=== PATIENT | male | born 1950 | race Caucasian/White ===

== ENCOUNTER 2016-12-07 13:57 | Emergency (ER) | payer OTHER ==
[~2016-12-07] VITALS: Ht 170.2 cm; Wt 78.0 kg
[~2016-12-07 13:57] MED LIST: ALPR1TAB3 PO; BUSP15TA PO; CITA20TA4 PO; DILT60TA33 PO; HYDR-3516 PO; MACR100C2 PO; MIRT45TA PO; PRAD150C PO; ZYPR20TA PO
[2016-12-07 14:13] VITALS: BP 105/79; PULSE 107; RESP 16; TEMP 98.1; O2SAT 97
--- NOTE | 2016-12-07 14:43 | PD ---
HPI Chief Complaint: Skin Problem Time Seen by Provider: 14:40 Travel History International Travel<30 days: No Contact w/Intl Traveler<30days: No Traveled to known affect area: No History of Present Illness HPI Patient comes in complaining of pruritic rash ongoing for approximately one week. Patient states the rash began on his right forearm has since spread to his bilateral upper and lower extremities. Patient states he took Benadryl today with no improvement of his symptoms. Patient denies any known new allergen exposures including but not limited to: soaps, lotions, detergents, pets, furniture, foods, or medicines. Patient denies being around anyone else with similar or weight loss. PFSH Past Medical History Hx Anticoagulant Therapy: Yes (PRADAXA) Arthritis: No Asthma: No Atrial Fibrillation: Yes (New onset 2016) Autoimmune Disease: No Anxiety: No Depression: Yes Heart Rhythm Problems: Yes (AF) Cancer: Yes (Prostate) Cardiovascular Problems: Yes (A. FIB) High Cholesterol: Yes Chemotherapy: No Chest Pain: Yes ( states occasionally) Congestive Heart Failure: No COPD: No Cerebrovascular Accident: Yes (According to , possible signs of past stroke ) Diabetes: No Diminished Hearing: No Endocrine: No Gastrointestinal Disorders: Yes (diarrhea for about 5 days) GERD: No Genitourinary: Yes Headaches: No Hiatal Hernia: No Heparin Induced Thrombocytopen: No Hypertension: Yes ( states occasionally) Immune Disorder: No Implanted Vascular Access Dvce: No Kidney Stones: No Musculoskeletal: Yes (Patient receives cortisone shot into his right hip) Neurologic: No Psychiatric: No Reproductive: No Respiratory: Yes Immunizations Current: Yes Migraines: No Radiation Therapy: Yes Renal Failure: No Seizures: No Sickle Cell Disease: No Sleep Apnea: No Thyroid Disease: No Ulcer: No Past Surgical History Abdominal Surgery: No AICD: No Arteriovenous Shunt: No Cardiac Surgery: Yes (Cardiac catheterization) Ear Surgery: No Endocrine Surgery: No Eye Surgery: No Genitourinary Surgery: Yes (Prostatectomy r/t prostate cancer) Gynecologic Surgery: No Insulin Pump: No Joint Replacement: No Neurologic Surgery: No Oral Surgery: No Pacemaker: No Thoracic Surgery: No Other Surgery: Yes (LEFT KNEE SURGERY) Social History Alcohol Use: Yes (DAILY BEER 2) Tobacco Use: Yes (3 cigs) Substance Use: No Allergies-Medications (Allergen,Severity, Reaction): Coded Allergies: No Known Allergies (Unverified , 12/07/16) Reported Meds & Prescriptions Reported Meds & Active Scripts Active Bactrim DS (Sulfamethoxazole-Trimethoprim) 800-160 Mg Tab 1 Tab PO BID Pepcid (Famotidine) 20 Mg Tab 20 Mg PO BID 10 Days Medrol Dosepak (Methylprednisolone) 4 Mg Dspk 4 Mg PO DIRECTED Per Pharmacist direction Reported Buspirone (Buspirone HCl) 15 Mg Tab 15 Mg PO TID Alprazolam 1 Mg Tab 1 Mg PO QID Hydrocodone-Acetaminophen 5-325 mg Tab 1 Tab PO BID PRN Zyprexa (Olanzapine) 20 Mg Tab 20 Mg PO HS Mirtazapine 45 Mg Tab 45 Mg PO HS Citalopram (Citalopram Hydrobromide) 20 Mg Tab 20 Mg PO DAILY Cardizem (Diltiazem HCl) 60 Mg Tab 60 Mg PO TID Pradaxa (Dabigatran) 150 Mg Cap 150 Mg PO BID Review of Systems Except as stated in HPI: all other systems reviewed are Neg Physical Exam Narrative GENERAL: Well-developed, overly nourished, in no acute distress, and non-ill appearing. SKIN: Warm and dry. Blanching rash noted bilateral upper extremities with excoriation noted from scratching. HEAD: Atraumatic. Normocephalic. EYES: Pupils equal and round. EOMI. No scleral icterus. No injection or drainage. ENT: No nasal bleeding or discharge. Mucous membranes pink and moist. NECK: Trachea midline. Supple. No nuclear rigidity. CARDIOVASCULAR: Regular rate and rhythm. No murmur appreciated. RESPIRATORY: No accessory muscle use. No respiratory distress. Clear to auscultation. Breath sounds equal bilaterally. MUSCULOSKELETAL: No obvious deformities. No clubbing. No cyanosis. No edema. Full range of motion. NEUROLOGICAL: Awake and alert. No obvious cranial nerve deficits. Motor grossly within normal limits. Normal speech. PSYCHIATRIC: Appropriate mood and affect; insight and judgment normal. Data Data Last Documented VS Vital Signs Date Time Temp Pulse Resp B/P Pulse Ox O2 Delivery O2 Flow Rate FiO2 12/07/16 14:13 98.1 107 16 105/79 97 Orders Prednisone (Deltasone) (12/07/16 14:45) Famotidine (Pepcid) (12/07/16 14:45) Sulfamet-Trimeth Ds 800-160 Mg (Bactrim (12/07/16 14:45) MDM Medical Decision Making Medical Screen Exam Complete: Yes Emergency Medical Condition: Yes Differential Diagnosis Allergic reaction, dermatitis, eczema, folliculitis, other Narrative Course The patient presented with nonspecific rash/dermatitis. There were no blisters or bullae, target lesions, purpura or petechia, nor vesiculobullous or scarlatiniform lesions. The patient looks great and was non-ill appearing. There was no evidence to suggest scabies, cellulitis, folliculitis or abscess, Staph. Scalded Skin Syndrome, Toxic Shock, Toxic Epidermal necrolysis, Kawasaki s, Measles, Rubella, cutaneous T cell lymphoma, Erythema Multiforme (minor or major). Plan of care was discussed with the patient and the patient is to follow up with their physician. The patient agreed with plan. Patient in no obvious distress upon re-evaluation. Patient was asked if they wanted to speak to my attending, which the patient did not wish to do at this time. Any questions/concerns in reference to patient diagnosis/condition discussed and clarified prior to patient's discharge. Reinforced sheer importance of close follow up with patient's primary physician or primary care clinic. Instructed patient to return to ED immediately, if symptoms return/ worsen. Pt showed understanding of above instructions. Further instructions and recommendations were detailed in discharge paperwork. Pt ambulated without difficulty out of ED at discharge. Diagnosis Primary Impression: Rash Patient Instructions: Acute Rash (ED), General Instructions Additional Instructions: Follow-up with your primary care physician and/or pole shaver helper in 3-5 days for reevaluation and possible allergy testing. Take all medication as prescribed. Use [id number] Claritin or Benadryl or Zyrtec as needed for symptomatic relief. Follow instructions on the packaging. Return to the emergency department if symptoms get worse. Med/Other Pt SpecificInfo: Prescription(s) given Scripts Sulfamethoxazole-Trimethoprim (Bactrim DS)800-160 Mg Tab1 Tab PO BID #20 TAB Ref 0 Prov:Paris Olivarez DO 12/07/16 Famotidine (Pepcid)20 Mg Tab20 Mg PO BID 10 Days Ref 0 Prov:Paris Olivarez DO 12/07/16 Methylprednisolone Dosepak (Medrol Dosepak)4 Mg Dspk4 Mg PO DIRECTED #1 DSPK Ref 0 Per Pharmacist direction Prov:Paris Olivarez DO 12/07/16 Disposition: 01 DISCHARGE HOME Condition: Stable Alberto Lou Dec 07, 2016 14:43 Alberto Lou Dec 07, 2016 14:43
[2016-12-07] MEDS ORDERED: predniSONE 20 MG TAB PO ONE (14:45)
[2016-12-07] MEDS ORDERED: SULFAMETHOXAZOLE-TRIMETHOPRIM DS 800-160 MG TAB PO ONE (14:45)
[2016-12-07] MEDS ORDERED: FAMOTIDINE 20 MG TAB PO ONE (14:45)
[2016-12-07] MEDS ORDERED: MEDR4PAK PO (14:46)
[2016-12-07] MEDS ORDERED: FAMO1TAB37 PO (14:46)
[2016-12-07] MEDS ORDERED: BACT800T5 PO (14:46)
== END 2016-12-07 15:34 | disposition home or self-care (01) ==
LOC: PHEFT 13:57
DX: R21 Rash and other nonspecific skin eruption (principal)
CPT/HCPCS: 99282; J7512

== ENCOUNTER 2017-05-14 10:29 | Emergency (ER) | payer OTHER ==
[~2017-05-14] VITALS: Ht 170.2 cm; Wt 77.0 kg
[~2017-05-14 10:29] MED LIST changes: +BACT800T5 PO; +FAMO1TAB37 PO; -MACR100C2 PO; +MEDR4PAK PO
[2017-05-14 10:34] VITALS: BP 117/71; PULSE 98; RESP 14; TEMP 98.2; O2SAT 96
[2017-05-14 10:49] VITALS: BP 117/71; PULSE 98; RESP 18; TEMP 98.2; O2SAT 96
[2017-05-14 10:53] LABS: GLUCOSE,URINE NEG (NEG); KETONE, URINE NEG (NEG); NITRITE,URINE NEG (NEG); PH, URINE 5.5 (5.0-8.5)
[2017-05-14 10:54] LABS: BLOOD, URINE MOD (NEG)
[2017-05-14 10:58] LABS: METHOD OF COLLECTION CLEAN CATCH; URINE COLOR YELLOW (YELLW/STRAW)
[2017-05-14] MEDS ORDERED: SODIUM CHLOR 0.9% 1000 ML INJ 1,000 ML IV SCH (10:58)
[2017-05-14 11:00] LABS: BACTERIA, URINE FEW /hpf; COMMENT (UR) CULTURE INDICATED; CULTURE IF INDICATED CULTURE INDICATED; RBC, URINE 0-3 /hpf (0-3); WBC, URINE 15-19 /hpf (0-5)
[2017-05-14] MEDS ORDERED: SODIUM CHLORIDE 0.9% FLUSH 10 ML FLUSH IV FLUSH PRN (11:00)
--- NOTE | 2017-05-14 11:04 | PD ---
HPI Chief Complaint: Complaint Time Seen by Provider: 10:51 Travel History International Travel<30 days: No Contact w/Intl Traveler<30days: No Traveled to known affect area: No History of Present Illness HPI Patient is a 67-year-old male with history of prostate cancer, status post radical prostatectomy with an AMS 800 urinary control some bulbous implants with the cuff in the urethra (placed 01/30/17) presents to the ER with complaints of hematuria. Patient reports that his urologist is , reports that he has completed his radiation treatment. Reports that he currently is on Pradaxa as he has history of Afib. Patient reports that since yesterday, he has noticed dark urine. Reports that when he urinates, he has to see obvious blood in his urine, which that he noted some blood in his underwear. Patient denies abdominal pain, denies nausea or vomiting. Patient with no fevers or chills. Patient denies dysuria, urinary urgency or frequency. Patient's only complaint is hematuria at this time. PFSH Past Medical History Hx Anticoagulant Therapy: Yes (PRADAXA) Arthritis: No Asthma: No Atrial Fibrillation: Yes Autoimmune Disease: No Anxiety: No Depression: Yes Heart Rhythm Problems: Yes (AF) Cancer: Yes (Prostate) Cardiovascular Problems: Yes (A. FIB) High Cholesterol: Yes Chemotherapy: No Chest Pain: Yes ( states occasionally) Congestive Heart Failure: No COPD: No Cerebrovascular Accident: Yes (According to , possible signs of past stroke ) Diabetes: No Diminished Hearing: No Endocrine: No Gastrointestinal Disorders: Yes GERD: No Genitourinary: Yes Headaches: No Hiatal Hernia: No Heparin Induced Thrombocytopen: No Hypertension: Yes Immune Disorder: No Implanted Vascular Access Dvce: No Kidney Stones: No Musculoskeletal: Yes Neurologic: No Psychiatric: No Reproductive: No Respiratory: Yes Immunizations Current: Yes Migraines: No Radiation Therapy: Yes Renal Failure: No Seizures: No Sickle Cell Disease: No Sleep Apnea: No Thyroid Disease: No Ulcer: No Tetanus Vaccination: > 5 Years Influenza Vaccination: Yes Past Surgical History Abdominal Surgery: No AICD: No Arteriovenous Shunt: Yes Cardiac Surgery: Yes (Cardiac catheterization) Ear Surgery: No Endocrine Surgery: No Eye Surgery: No Genitourinary Surgery: Yes (Prostatectomy r/t prostate cancer) Gynecologic Surgery: No Insulin Pump: No Joint Replacement: No Neurologic Surgery: No Oral Surgery: No Pacemaker: No Thoracic Surgery: No Other Surgery: Yes (LEFT KNEE SURGERY) Social History Alcohol Use: Yes (Occ.) Tobacco Use: Yes (5 cigarettes/day) Substance Use: No Allergies-Medications (Allergen,Severity, Reaction): Coded Allergies: No Known Allergies (Unverified , 05/14/17) Reported Meds & Prescriptions Reported Meds & Active Scripts Active Reported Gabapentin 100 Mg Cap 100 Mg PO TID Buspirone (Buspirone HCl) 15 Mg Tab 15 Mg PO TID Alprazolam 1 Mg Tab 1 Mg PO QID Hydrocodone-Acetaminophen 5-325 mg Tab 1 Tab PO BID PRN Zyprexa (Olanzapine) 20 Mg Tab 20 Mg PO HS Mirtazapine 45 Mg Tab 45 Mg PO HS Citalopram (Citalopram Hydrobromide) 20 Mg Tab 20 Mg PO DAILY Cardizem (Diltiazem HCl) 60 Mg Tab 60 Mg PO TID Pradaxa (Dabigatran) 150 Mg Cap 150 Mg PO BID Review of Systems General / Constitutional: No: Fever Eyes: No: Visual changes HENT: No: Headaches Cardiovascular: No: Chest Pain or Discomfort Respiratory: No: Shortness of Breath Gastrointestinal: No: Nausea, Vomiting, Diarrhea, Abdominal Pain Genitourinary: Positive: Hematuria, No: Dysuria Musculoskeletal: No: Pain Skin: No Rash Neurologic: No: Weakness Psychiatric: No: Depression Endocrine: No: Polydipsia Hematologic/Lymphatic: No: Easy Bruising Physical Exam Narrative GENERAL: NAD, nontoxic SKIN: Focused skin assessment warm/dry. HEAD: Atraumatic. Normocephalic. EYES: Pupils equal and round. No scleral icterus. No injection or drainage. ENT: No nasal bleeding or discharge. Mucous membranes pink and moist. NECK: Trachea midline. No JVD. CARDIOVASCULAR: Regular rate and rhythm. No murmur appreciated. RESPIRATORY: No accessory muscle use. Clear to auscultation. Breath sounds equal bilaterally. GASTROINTESTINAL: Abdomen soft, non-tender, nondistended. Hepatic and splenic margins not palpable. MUSCULOSKELETAL: No obvious deformities. No clubbing. No cyanosis. No edema. NEUROLOGICAL: Awake and alert. No obvious cranial nerve deficits. Motor grossly within normal limits. Normal speech. PSYCHIATRIC: Appropriate mood and affect; insight and judgment normal. Data Data Last Documented VS Vital Signs Date Time Temp Pulse Resp B/P Pulse Ox O2 Delivery O2 Flow Rate FiO2 05/14/17 10:49 98.2 98 18 117/71 96 05/14/17 10:34 Room Air Orders Urinalysis - C+S If Indicated (05/14/17 10:40) Basic Metabolic Panel (Bmp) (05/14/17 10:58) Complete Blood Count With Diff (05/14/17 10:58) Prothrombin Time / Inr (Pt) (05/14/17 10:58) Act Partial Throm Time (Ptt) (05/14/17 10:58) Iv Access Insert/Monitor (05/14/17 10:58) Sodium Chlor 0.9% 1000 Ml Inj (Ns 1000 M (05/14/17 10:58) Sodium Chloride 0.9% Flush (Ns Flush) (05/14/17 11:00) Urine Culture (05/14/17 10:46) Ceftriaxone Inj (Rocephin Inj) (05/14/17 11:30) Labs Laboratory Tests Test 05/14/17 05/14/17 10:46 11:00 Urine Collection Type CLEAN CATCH Urine Color YELLOW Urine Turbidity CLEAR Urine pH 5.5 Urine Specific Naylor 1.011 Urine Protein NEG mg/dL Urine Glucose (UA) NEG mg/dL Urine Ketones NEG mg/dL Urine Occult Blood MOD Urine Nitrite NEG Urine Bilirubin NEG Urine Leukocyte Esterase TRACE Urine RBC 0-3 /hpf Urine WBC 15-19 /hpf Urine Squamous Epithelial 6-8 /hpf Cells Urine Amorphous Sediment FEW Urine Bacteria FEW /hpf Microscopic Urinalysis Comment CULTURE INDICATED Urine Collection Time 1046 White Blood Count 9.0 TH/MM3 Red Blood Count 4.42 MIL/MM3 Hemoglobin 13.7 GM/DL Hematocrit 39.8 % Mean Corpuscular Volume 90.2 FL Mean Corpuscular Hemoglobin 31.0 PG Mean Corpuscular Hemoglobin 34.4 % Concent Red Cell Distribution Width 12.4 % Platelet Count 204 TH/MM3 Mean Platelet Volume 7.4 FL Neutrophils (%) (Auto) 81.0 % Lymphocytes (%) (Auto) 9.9 % Monocytes (%) (Auto) 6.4 % Eosinophils (%) (Auto) 2.2 % Basophils (%) (Auto) 0.5 % Neutrophils # (Auto) 7.3 TH/MM3 Lymphocytes # (Auto) 0.9 TH/MM3 Monocytes # (Auto) 0.6 TH/MM3 Eosinophils # (Auto) 0.2 TH/MM3 Basophils # (Auto) 0.0 TH/MM3 CBC Comment DIFF FINAL Differential Comment Prothrombin Time 11.8 SEC Prothromb Time International 1.1 RATIO Ratio Activated Partial 44.3 SEC Thromboplast Time Sodium Level 143 MEQ/L Potassium Level 4.0 MEQ/L Chloride Level 110 MEQ/L Carbon Dioxide Level 25.1 MEQ/L Anion Gap 8 MEQ/L Blood Urea Nitrogen 14 MG/DL Creatinine 1.10 MG/DL Estimat Glomerular Filtration 67 ML/MIN Rate Random Glucose 80 MG/DL Calcium Level 9.1 MG/DL MDM Medical Decision Making Medical Screen Exam Complete: Yes Emergency Medical Condition: Yes Interpretation(s) Vital Signs Date Time Temp Pulse Resp B/P Pulse Ox O2 Delivery O2 Flow Rate FiO2 05/14/17 10:49 98.2 98 18 117/71 96 05/14/17 10:34 98.2 98 14 117/71 96 Room Air Differential Diagnosis Differential includes cystitis, hematuria from malignancy, electrolyte abnormality, dehydration Narrative Course Patient is a 67-year-old male who presents to emergency room with complaints of hematuria. Patient with no complaints, denies any fevers or chills, denies abdominal pain. Patient reports that his urine appears dark in appearance. He does take Pradaxa as he has history of atrial fibrillation. Plan to obtain basic blood work, will check INR. UA ordered to evaluate for possible UTI/cystitis. Vital Signs Date Time Temp Pulse Resp B/P Pulse Ox O2 Delivery O2 Flow Rate FiO2 05/14/17 10:49 98.2 98 18 117/71 96 05/14/17 10:34 98.2 98 14 117/71 96 Room Air Laboratory Tests Test 05/14/17 05/14/17 10:46 11:00 Urine Collection Type CLEAN CATCH Urine Color YELLOW (YELLW/STRAW) Urine Turbidity CLEAR (CLEAR) Urine pH 5.5 (5.0-8.5) Urine Specific Naylor 1.011 (1.002-1.035) Urine Protein NEG mg/dL (NEG-TRACE) Urine Glucose (UA) NEG mg/dL (NEG) Urine Ketones NEG mg/dL (NEG) Urine Occult Blood MOD (NEG) Urine Nitrite NEG (NEG) Urine Bilirubin NEG (NEG) Urine Leukocyte Esterase TRACE (NEG) Urine RBC 0-3 /hpf (0-3) Urine WBC 15-19 /hpf (0-5) Urine Squamous Epithelial 6-8 /hpf (0-5) Cells Urine Amorphous Sediment FEW Urine Bacteria FEW /hpf (NONE) Microscopic Urinalysis Comment CULTURE INDICATED Urine Collection Time 1046 White Blood Count 9.0 TH/MM3 (4.0-11.0) Red Blood Count 4.42 MIL/MM3 (4.50-5.90) Hemoglobin 13.7 GM/DL (13.0-17.0) Hematocrit 39.8 % (39.0-51.0) Mean Corpuscular Volume 90.2 FL (80.0-100.0) Mean Corpuscular Hemoglobin 31.0 PG (27.0-34.0) Mean Corpuscular Hemoglobin 34.4 % Concent (32.0-36.0) Red Cell Distribution Width 12.4 % (11.6-17.2) Platelet Count 204 TH/MM3 (150-450) Mean Platelet Volume 7.4 FL (7.0-11.0) Neutrophils (%) (Auto) 81.0 % (16.0-70.0) Lymphocytes (%) (Auto) 9.9 % (9.0-44.0) Monocytes (%) (Auto) 6.4 % (0.0-8.0) Eosinophils (%) (Auto) 2.2 % (0.0-4.0) Basophils (%) (Auto) 0.5 % (0.0-2.0) Neutrophils # (Auto) 7.3 TH/MM3 (1.8-7.7) Lymphocytes # (Auto) 0.9 TH/MM3 (1.0-4.8) Monocytes # (Auto) 0.6 TH/MM3 (0-0.9) Eosinophils # (Auto) 0.2 TH/MM3 (0-0.4) Basophils # (Auto) 0.0 TH/MM3 (0-0.2) CBC Comment DIFF FINAL Differential Comment Prothrombin Time 11.8 SEC (9.8-11.6) Prothromb Time International 1.1 RATIO Ratio Activated Partial 44.3 SEC Thromboplast Time (24.3-30.1) Sodium Level 143 MEQ/L (136-145) Potassium Level 4.0 MEQ/L (3.5-5.1) Chloride Level 110 MEQ/L (98-107) Carbon Dioxide Level 25.1 MEQ/L (21.0-32.0) Anion Gap 8 MEQ/L (5-15) Blood Urea Nitrogen 14 MG/DL (7-18) Creatinine 1.10 MG/DL (0.60-1.30) Estimat Glomerular Filtration 67 ML/MIN (>89) Rate Random Glucose 80 MG/DL (74-106) Calcium Level 9.1 MG/DL (8.5-10.1) Hemoglobin 13.7, hematocrit 39.8, BUN 14, creatinine 1.10, INR 1.1, UA positive for trace leuk esterase, 15-19 white blood cells, 0-3 red blood cells, few bacteria, moderate blood, hematuria was likely from cystitis. Plan to treat with IV dose of antibiotic and we'll send patient home with a prescription for Macrobid.. Urine culture was sent. Patient will follow up with his urologist, he will follow up with cultures from today. Patient will return to the emergency room as needed. Diagnosis Primary Impression: Cystitis Additional Impression: Dehydration Patient Instructions: General Instructions Additional Instructions: Please follow-up with your primary care doctor Please follow-up with your urologist Please follow-up with all cultures from today Return to emergency room if symptoms worsen or progress Return to the emergency room as needed Med/Other Pt SpecificInfo: Prescription(s) given Scripts Nitrofurantoin Monohydrate Macrocrystals (Macrobid)100 Mg [id number] Mg PO BID 10 Days Ref 0 Prov:Paris Olivarez DO 05/14/17 Disposition: 01 DISCHARGE HOME Condition: Stable Paris Olivarez DO May 14, 2017 11:04
[2017-05-14 11:10] LABS: AUTOMATED NEUTROPHIL # 7.3 TH/MM3 (1.8-7.7); BASOPHIL % 0.5 % (0.0-2.0); EOSINOPHIL # 0.2 TH/MM3 (0-0.4); EOSINOPHIL % 2.2 % (0.0-4.0); HEMATOCRIT 39.8 % (39.0-51.0); HEMO FLAGS DIFF FINAL; LYMPH % 9.9 % (9.0-44.0); LYMPHOCYTE # 0.9 TH/MM3 (1.0-4.8); MEAN CELL VOLUME 90.2 FL (80.0-100.0); MEAN CORPUSCULAR HGB CONC 34.4 % (32.0-36.0); MONO % 6.4 % (0.0-8.0); PLATELET COUNT 204 TH/MM3 (150-450); RED BLOOD COUNT 4.42 MIL/MM3 (4.50-5.90); RED CELL DISTRIBUTION WIDTH 12.4 % (11.6-17.2)
[2017-05-14] MEDS ORDERED: GABA100C4 PO (11:12)
[2017-05-14 11:23] LABS: BICARBONATE 25.1 MEQ/L (21.0-32.0)
[2017-05-14 11:24] LABS: APTT (PATIENT) 44.3 SEC (24.3-30.1); INTERNATIONAL NORMALIZED RATIO 1.1 RATIO; PROTHROMBIN TIME - PATIENT 11.8 SEC (9.8-11.6)
[2017-05-14] MEDS ORDERED: cefTRIAXone INJ 1,000 MG in SODIUM CHLORIDE 0.9% INJ 100 ML IV ONE (11:30)
[2017-05-14] MEDS ORDERED: MACR100C2 PO (11:31)
[2017-05-14 12:12] VITALS: BP 138/90; PULSE 76; RESP 16; O2SAT 98
== END 2017-05-14 12:46 | disposition home or self-care (01) ==
LOC: PHED 10:29
DX: N30.91 Cystitis, unspecified with hematuria (principal); E86.0 Dehydration; I10 Essential (primary) hypertension; E78.00 Pure hypercholesterolemia, unspecified; Z72.0 Tobacco use; Z79.01 Long term (current) use of anticoagulants; Z98.890 Other specified postprocedural states; Z86.79 Personal history of other diseases of the circulatory system; Z85.46 Personal history of malignant neoplasm of prostate; Z87.19 Personal history of other diseases of the digestive system; Z87.448 Personal history of other diseases of urinary system; Z87.39 Personal history of other diseases of the musculoskeletal system and connective tissue
CPT/HCPCS: 80048; 81001; 85025; 85610; 85730; 87086; 96365; 99284; J0696; J7030

== ENCOUNTER → 2017-10-28 10:00 | Emergency (ER) | payer OTHER ==
[~2017-10-28 10:00] MED LIST changes: -BACT800T5 PO; -FAMO1TAB37 PO; +GABA100C4 PO; +MACR100C2 PO; -MEDR4PAK PO
== END | disposition left against medical advice (07) ==
LOC: PHED 10:00
DX: Z53.21 Procedure and treatment not carried out due to patient leaving prior to being seen by health care provider (principal)
CPT/HCPCS: 99281